=== PATIENT | female | born 1990 | race Two or more races ===

== ENCOUNTER 2018-03-28 23:48 | Emergency (ER) | payer MEDICAID, OTHER ==
[2018-03-29] MEDS ORDERED: DEXAMETHASONE 10 MG/ML VIAL IVP ONE (00:23)
[2018-03-29] MEDS ORDERED: HALOPERIDOL LACT 5 MG/ML INJ IVP ONE (00:23)
[2018-03-29] MEDS ORDERED: NS 1,000 ML IV ONE (00:24)
--- NOTE | 2018-03-29 00:24 | EDPHY ---
H & P Stated Complaint: r sided headache x 3 days Time Seen by Provider: 03/29/18 00:04 HPI/ROS: Chief Complaint: Headache HPI: 28-year-old woman presenting with right-sided retro-orbital headache for the last 3 days. It has been waxing and waning. At worst is an 8/10. Mild relief with anti-inflammatories. She has a history of similar headaches in the past and was told that they were migraines. Some nausea no vomiting. Positive photophobia. No neck pain or stiffness. No fevers or chills. No vision changes. She last took Naprosyn about 45 min ago. No muscle aches. No cough. ROS: 10 systems were reviewed and were negative except those elements noted in the HPI. PMH: Migraine headaches Social History: No smoking, occasional alcohol, no recreational drug use Family History: non-contributory Physical Exam: Gen: Awake, Alert, No Distress HEENT: Nose: no rhinorrhea Eyes: PERRLA, EOMI Mouth: Moist mucosa Neck: Supple, no JVD Chest: nontender, lungs clear to auscultation Heart: S1, S2 normal, no murmur Abd: Soft, non-tender, no guarding Back: no CVA tenderness, no midline tenderness Ext: no edema, non-tender Skin: no rash Neuro: CN II-XII intact, Sensation grossly intact, Strength 5/5 in bilateral upper and lower extremities - Personal History LMP (Females 10-55): Unknown Current Tetanus/Diphtheria Vaccine: Yes Current Tetanus Diphtheria and Acellular Pertussis (TDAP): Yes - Medical/Surgical History Hx Asthma: No Hx Chronic Respiratory Disease: No Hx Diabetes: No Hx Cardiac Disease: No Hx Renal Disease: No Hx Cirrhosis: No Hx Alcoholism: No Hx HIV/AIDS: No Hx Splenectomy or Spleen Trauma: No Other PMH: Vivi, appy, bronchitis; right thumb sx; cyst on R ovary. . Gestational Diabetic. Elevated BMI. YURY=positive screen, RT informed. - Social History Smoking Status: Never smoked Constitutional: Initial Vital Signs Temperature (C) 36.8 C 03/28/18 23:53 Heart Rate 79 03/28/18 23:53 Respiratory Rate 18 03/28/18 23:53 Blood Pressure 122/82 H 03/28/18 23:53 O2 Sat (%) 98 03/28/18 23:53 O2 Delivery Mode Room Air Allergies/Adverse Reactions: latex [Latex] Allergy (Intermediate, Verified 09/15/15 11:40) rash and itching peanut [Peanut] Allergy (Mild, Verified 09/15/15 11:40) Hives Penicillins Allergy (Mild, Verified 09/15/15 11:40) Hives cats and dogs Allergy (Unknown, Uncoded 06/06/15 17:30) Home Medications: Medication Instructions Recorded Ibuprofen [Motrin (*)] 600 mg PO Q6HRS PRN #30 tab 02/12/16 Medical Decision Making ED Course/Re-evaluation: Patient's headache is gone after IV fluids, Reglan, Decadron and diphenhydramine. She has no red flags for acute intracranial bleed or infection. Has a history of the same. Not the worst headache of her life. Will discharge with follow-up with primary care physician. - Data Points Medications Given: Discontinued Medications Dexamethasone (Decadron Injection) 10 mg IVP EDNOW ONE Stop: 03/29/18 00:24 Last Admin: 03/29/18 00:46 Dose: 10 mg Diphenhydramine HCl (Benadryl Injection) 50 mg IVP EDNOW ONE Stop: 03/29/18 00:24 Last Admin: 03/29/18 00:35 Dose: 50 mg Haloperidol Lactate (Haldol Injection) 2.5 mg IVP EDNOW ONE Stop: 03/29/18 00:24 Last Admin: 03/29/18 00:46 Dose: Not Given Sodium Chloride (Ns) 1,000 mls @ 0 mls/hr IV ONCE ONE; Wide Open PRN Reason: Protocol Stop: 03/29/18 00:25 Last Admin: 03/29/18 00:40 Dose: 1,000 mls Metoclopramide HCl (Reglan Injection) 10 mg IVP EDNOW ONE Stop: 03/29/18 00:40 Last Admin: 03/29/18 00:42 Dose: 10 mg Departure - Departure Disposition: Home, Routine, Self-Care Clinical Impression: Migraine headache Condition: Good Instructions: Migraine Headache (ED) Additional Instructions: Follow up with primary care physician in 2-3 days of you're not feeling well. Return to the emergency depart for increasing headache, nausea, vomiting, fevers , chills, or any other concerns. Referrals: [place]ia Bland MD [Primary Care Provider] - As per Instructions
[2018-03-29] MEDS ORDERED: DEXAMETHASONE 4 MG/ML VIAL ONE (00:26)
[2018-03-29] MEDS ORDERED: METOCLOPRAMIDE 10 MG/2 ML VIAL ONE (00:39)
[2018-03-29] MEDS ORDERED: METOCLOPRAMIDE 10 MG/2 ML VIAL IVP ONE (00:39)
[2018-03-29 01:30] VITALS: BP 100/63
== END 2018-03-29 01:31 | disposition home or self-care (01) ==
DX: G43.909 Migraine, unspecified, not intractable, without status migrainosus (principal); E86.9 Volume depletion, unspecified
CPT/HCPCS: 96374; J1100; J1200; J1630; J2765

== ENCOUNTER 2018-06-03 07:29 | Emergency (ER) | payer MEDICAID, OTHER ==
--- NOTE | 2018-06-03 07:47 | EDPHY ---
H & P Time Seen by Provider: 06/03/18 07:46 HPI/ROS: Chief complaint. Knee injury HPI. Patient 28-year-old female was at work yesterday. 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 She fell and struck her right knee. Complains of continuing right knee pain. Using Tylenol and Advil with moderate relief. Hurts to walk. No previous injury to the right knee. No other injuries. ROS 10 systems were reviewed and negative with the exception of the elements mentioned in the history of present illness Smoking Status: Never smoked Constitutional: Initial Vital Signs Temperature (C) 36.5 C 06/03/18 07:32 Heart Rate 78 06/03/18 07:32 Respiratory Rate 18 06/03/18 07:32 Blood Pressure 155/87 H 06/03/18 07:32 O2 Sat (%) 97 06/03/18 07:32 O2 Delivery Mode Room Air Allergies/Adverse Reactions: Penicillins Allergy (Verified 06/03/18 07:32) Home Medications: Medication Instructions Recorded Hydrocodone/APAP 5/325 [[place] 1 each PO Q4-6PRN PRN #10 tab 06/03/18 5/325 (*)] Medical Decision Making - Diagnostics Imaging Results: X-ray right knee interpreted by me is normal Procedures: Patient has a knee immobilizer placed. Post knee immobilizer application shows good anatomic position and distal motor vascular sensitivity to be intact ED Course/Re-evaluation: Re-evaluation 8:00 a.m.. Patient and I discussed imaging study results, treatment plan including criteria for return and importance of follow-up and further evaluation. She expresses understanding and agreement Differential Diagnosis: I considered contusion, sprain, fracture, dislocation Departure - Departure Disposition: Home, Routine, Self-Care Clinical Impression: Knee sprain Qualifiers: Encounter type: initial encounter Involved ligament of knee: unspecified ligament Laterality: right Qualified Code(s): S83.91XA - Sprain of unspecified site of right knee, initial encounter Condition: Good Instructions: Knee Sprain (ED) Additional Instructions: Ice and elevation next 24 hr Splint on for 1 week. For continuing pain follow-up with your regular physician Ibuprofen 600 mg every 6 hr, hydrocodone in addition for pain if necessary. Hydrocodone has some Tylenol in it so you may use hydrocodone or Tylenol in addition to the ibuprofen Referrals: [place] Bland MD [Primary Care Provider] - 5-7 days, if not improved Stand Alone Forms: Work Excuse Prescriptions: Hydrocodone/APAP 5/325 [[place] 5/325 (*)] 1 each PO Q4-6PRN PRN #10 tab PRN Reason: Pain, Moderate
[2018-06-03 08:25] VITALS: BP 130/79
== END 2018-06-03 08:25 | disposition home or self-care (01) ==
DX: S83.91XA Sprain of unspecified site of right knee, initial encounter (principal); W22.8XXA Striking against or struck by other objects, initial encounter; Y93.E5 Activity, floor mopping and cleaning; Y99.0 Civilian activity done for income or pay
CPT/HCPCS: L1830